=== PATIENT | female | born 1990 ===

== ENCOUNTER 2022-02-24 06:07 | Day surgery (SDC) | payer OTHER | END 2022-02-24 11:10 | disposition home or self-care (01) | LOC: AMB-ENDOS 06:07 | PROVIDERS: ATTEND Surgery | DX: K29.50 Unspecified chronic gastritis without bleeding (principal); K44.9 Diaphragmatic hernia without obstruction or gangrene; B96.81 Helicobacter pylori [H. pylori] as the cause of diseases classified elsewhere; I10 Essential (primary) hypertension ==